=== PATIENT | female | born 1965 | race Asian ===

== ENCOUNTER 2024-01-11 08:20 | Emergency (ER) | payer BC ==
[~2024-01-11] VITALS: Ht 157.5 cm; Wt 67.1 kg
[2024-01-11 08:45] VITALS: BP_SYST 148; PULSE 80; RESP 18; TEMP 98.3; O2SAT 97
[2024-01-11] MEDS: KETOROLAC TROMETHAMINE 60 MG/2 ML VIAL IM ONE (09:16)
[2024-01-11] MEDS ORDERED: CYCL10TA24 PO (09:25)
[2024-01-11] MEDS ORDERED: PRED20TA PO (09:25)
[2024-01-11] MEDS ORDERED: IBUP-1969 PO (09:25)
[2024-01-11] MEDS: methylPREDNISolone SOD SUCC/PF 62.5 MG/ML VIAL IM ONE (09:30)
[2024-01-11 10:12] LABS: BILIRUBIN,URINE NEGATIVE (NEGATIVE); BLOOD, URINE NEGATIVE (NEGATIVE); CLARITY/URINE CLEAR (CLEAR); COLOR,URINE YELLOW (YELLOW); GLUCOSE,URINE NEGATIVE (NEGATIVE); KETONES,URINE NEGATIVE (NEGATIVE); LEUKOCYTE ESTERASE ,URINE NEGATIVE (NEGATIVE); NITRITE, URINE NEGATIVE (NEGATIVE); PROTEIN URINE NEGATIVE (NEGATIVE); UROBILINOGEN,URINE 0.2 (0.2-1.0)
[2024-01-11 10:44] VITALS: BP_SYST 148; PULSE 80; RESP 18; TEMP 99.2; O2SAT 97
== END 2024-01-11 10:44 | disposition home or self-care (01) ==
LOC: SED 08:20
DX: M51.36 Other intervertebral disc degeneration, lumbar region (principal); I10 Essential (primary) hypertension
CPT/HCPCS: 99285; 72131; 81001; 96372; 81003; J1885; J2930